=== PATIENT | female | born 1965 | race Caucasian/White ===

== ENCOUNTER 2017-04-22 21:42 | Emergency (ER) | payer MEDICAID ==
[~2017-04-22] VITALS: Ht 160 cm; Wt 88.5 kg
[2017-04-22 21:42] VITALS: BP_SYST 118
[2017-04-22 23:55] VITALS: BP_SYST 117
== END 2017-04-22 23:55 | disposition home or self-care (01) ==
LOC: SED 21:42
DX: L02.214 Cutaneous abscess of groin (principal); J45.909 Unspecified asthma, uncomplicated; Z88.1 Allergy status to other antibiotic agents
CPT/HCPCS: 87070-TC; 87075-TC; 99284